=== PATIENT | female | born 1995 | race Caucasian/White ===

== ENCOUNTER 2017-02-16 13:29 | Emergency (ER) | payer OTHER, MEDICAID ==
[~2017-02-16] VITALS: Ht 160 cm; Wt 85.0 kg
[~2017-02-16 13:29] MED LIST: IBUP800T PO
[2017-02-16 14:41] LABS: BLOOD UREA NITROGEN 10 mg/dL (7-18)
[2017-02-16 14:47] LABS: ASPARTATE AMINO TRANSFERASE 17 U/L (15-37)
[2017-02-16] MEDS ORDERED: SODIUM CHLORIDE 0.9% 1,000 ML IV ONE (14:53)
[2017-02-16] MEDS ORDERED: SODIUM CHLORIDE FLUSH 10ML SYR IVF ONE (15:00)
[2017-02-16] MEDS ORDERED: SODIUM CHLORIDE 0.9% 1,000ML IVBOLUS ONE (15:00)
[2017-02-16] MEDS ORDERED: ONDANSETRON 2MG/ML, 2ML IVPush ONE (15:00)
[2017-02-16] MEDS ORDERED: ACETAMINOPHEN 325 MG TABLET PO ONE (15:00)
[2017-02-16] MEDS ORDERED: ACETAMINOPHEN 325 MG TABLET ONE (15:11)
[2017-02-16] MEDS ORDERED: ONDANSETRON 2MG/ML, 2ML ONE (15:11)
[2017-02-16] MEDS ORDERED: MAALOX/HYOSCYAMINE/LIDOCAINE 45 ML BOTTLE PO ONE (16:00)
[2017-02-16] MEDS ORDERED: MAALOX/HYOSCYAMINE/LIDOCAINE 45 ML BOTTLE ONE (16:08)
[2017-02-16 16:52] VITALS: BP 126/74
== END 2017-02-16 17:13 | disposition home or self-care (01) ==
LOC: ED 14:37
DX: N30.81 Other cystitis with hematuria (principal); R10.13 Epigastric pain; R10.33 Periumbilical pain; M41.9 Scoliosis, unspecified
CPT/HCPCS: 36415; 73630; 80053; 81001; 83690; 84703; 85025; 87086; 96361; 96374; 99285; J2405; J7030

== ENCOUNTER 2017-09-02 11:33 | Emergency (ER) | payer MEDICAID ==
[~2017-09-02] VITALS: Ht 160 cm; Wt 77.2 kg
[~2017-09-02 11:33] MED LIST changes: +IBUP-1223 PO; -IBUP800T PO
[2017-09-02] MEDS ORDERED: morphine SULFATE 10 MG/ML, 1ML ONE (12:29)
[2017-09-02] MEDS ORDERED: ONDANSETRON 2MG/ML, 2ML ONE (12:29)
[2017-09-02] MEDS ORDERED: ONDANSETRON 2MG/ML, 2ML IVPush ONE (12:30)
[2017-09-02] MEDS ORDERED: MORPHINE SULFATE 4 MG/ML, 1ML IVPush PRN (12:30)
[2017-09-02] MEDS ORDERED: SODIUM CHLORIDE FLUSH 10ML SYR IVF ONE (12:30)
[2017-09-02 12:40] LABS: PATH.CAST-FLAG NOT PRESENT; SPERM-FLAG NOT PRESENT; SRC-FLAG NOT PRESENT; XTAL-FLAG NOT PRESENT; YLC-FLAG NOT PRESENT
[2017-09-02 12:49] LABS: HEMATOCRIT 38.1 % (34.6-47.8); HEMOGLOBIN 12.8 g/dL (11.7-16.4); WHITE BLOOD COUNT 6.1 x10^3/uL (3.4-10)
[2017-09-02 13:03] LABS: ASPARTATE AMINO TRANSFERASE 15 U/L (15-37); BLOOD UREA NITROGEN 12 mg/dL (7-18)
[2017-09-02 13:42] VITALS: BP 100/61
== END 2017-09-02 13:44 | disposition home or self-care (01) ==
LOC: ED 13:37
DX: K52.9 Noninfective gastroenteritis and colitis, unspecified (principal); G43.909 Migraine, unspecified, not intractable, without status migrainosus; Z90.49 Acquired absence of other specified parts of digestive tract
CPT/HCPCS: 36415; 74176; 80053; 81001; 83690; 85025; 96374; 96375; 99285; J2405

== ENCOUNTER 2017-10-10 10:26 | Emergency (ER) | payer MEDICAID ==
[~2017-10-10] VITALS: Ht 160 cm; Wt 75.0 kg
[2017-10-10] MEDS ORDERED: MAALOX/HYOSCYAMINE/LIDOCAINE 45 ML BTL ONE (11:17)
[2017-10-10] MEDS ORDERED: MAALOX/HYOSCYAMINE/LIDOCAINE 45 ML BTL PO ONE (11:30)
[2017-10-10 11:32] LABS: HEMATOCRIT 38.1 % (34.6-47.8); HEMOGLOBIN 13.2 g/dL (11.7-16.4)
[2017-10-10 11:42] LABS: ASPARTATE AMINO TRANSFERASE 18 U/L (15-37); BLOOD UREA NITROGEN 14 mg/dL (7-18)
[2017-10-10 12:02] VITALS: BP 127/81
== END 2017-10-10 13:16 | disposition home or self-care (01) ==
LOC: ED 13:10
DX: R10.84 Generalized abdominal pain (principal); G43.909 Migraine, unspecified, not intractable, without status migrainosus; Z90.49 Acquired absence of other specified parts of digestive tract
CPT/HCPCS: 36415; 80053; 83690; 85025; 99284

== ENCOUNTER 2018-01-08 14:14 | Emergency (ER) | payer MEDICAID ==
[~2018-01-08] VITALS: Ht 160 cm; Wt 80.1 kg
[2018-01-08] MEDS ORDERED: MORPHINE SULFATE 4 MG/ML, 1ML ONE ×2 (16:15→17:11)
[2018-01-08] MEDS ORDERED: FAMOTIDINE 20 MG/2 ML ONE (16:15)
[2018-01-08] MEDS ORDERED: ONDANSETRON 2MG/ML, 2ML ONE (16:15)
[2018-01-08] MEDS: MORPHINE SULFATE 4 MG/ML, 1ML IVPush PRN ×2 (16:18→17:13)
[2018-01-08 16:22] LABS: BASOPHILS # (AUTO) 0.07 x10^3/uL (0-0.1); BASOPHILS % (AUTO) 1 % (0-1); EOSINOPHILS % (AUTO) 1 % (1-7); LYMPHOCYTES # (AUTO) 3.42 x10^3/uL (1-3.4); LYMPHOCYTES % (AUTO) 32 % (22-44); MD NO; MEAN CORPUSCULAR HEMOGLOBIN 30.2 pg (27.0-34.8); MEAN CORPUSCULAR HGB CONC 33.5 g/dL (32.4-35.8); MEAN CORPUSCULAR VOLUME 90.2 fL (80-100); MEAN PLATELET VOLUME 9.8 fL (7.4-10.4); MONOCYTES # (AUTO) 0.69 x10^3/uL (0.2-0.8); MONOCYTES % (AUTO) 7 % (2-9); NEUTROPHILS # (AUTO) 6.42 x10^3/uL (1.8-6.8); NEUTROPHILS % (AUTO) 60 % (42-75); PLATELET COUNT 298 x10^3/uL (130-400); RED BLOOD COUNT 4.32 x10^6/uL (3.82-5.3); RED CELL DISTRIBUTION WIDTH 13.6 % (9.6-15.2)
[2018-01-08 16:26] LABS: MICROSCOPIC AUTO
[2018-01-08 16:27] LABS: CULTURE INDICATED? YES
[2018-01-08] MEDS ORDERED: SODIUM CHLORIDE FLUSH 10ML SYR IVF ONE (16:30)
[2018-01-08] MEDS ORDERED: ONDANSETRON 2MG/ML, 2ML IVPush ONE (16:30)
[2018-01-08] MEDS ORDERED: FAMOTIDINE 20 MG/2 ML IVP ONE (16:30)
[2018-01-08 16:34] LABS: ALANINE AMINOTRANSFERASE 22 U/L (12-78); ALBUMIN 4.2 g/dL (3.4-5.0); ANION GAP 7 mmol/L (5-15); CALCIUM 8.4 mg/dL (8.5-10.1); CHLORIDE 106 mmol/L (98-107)
[2018-01-08 16:39] LABS: ALKALINE PHOSPHATASE 67 U/L (45-117); BILIRUBIN,TOTAL 0.6 mg/dL (0.2-1.0); TOTAL PROTEIN 7.5 g/dL (6.4-8.2)
[2018-01-08 17:14] VITALS: BP 106/56
== END 2018-01-08 17:36 | disposition home or self-care (01) ==
LOC: ED 16:26
DX: K29.00 Acute gastritis without bleeding (principal)
CPT/HCPCS: 36415; 76700; 80053; 81001; 83690; 84703; 85025; 87086; 93005; 96374; 96375; 96376; S0028

== ENCOUNTER 2018-01-16 14:10 | Emergency (ER) | payer MEDICAID ==
[~2018-01-16] VITALS: Ht 160 cm; Wt 78.0 kg
[2018-01-16 14:13] VITALS: BP 114/76
[2018-01-16] MEDS ORDERED: MAALOX/HYOSCYAMINE/LIDOCAINE 45 ML BTL PO ONE ×2 (14:30→15:00)
[2018-01-16] MEDS ORDERED: ONDANSETRON ODT 4 MG PO ONE (14:30)
[2018-01-16] MEDS ORDERED: ONDANSETRON ODT 4 MG ONE (14:38)
[2018-01-16] MEDS ORDERED: MAALOX/HYOSCYAMINE/LIDOCAINE 45 ML BTL ONE (14:38)
[2018-01-16 15:02] LABS: BASOPHILS # (AUTO) 0.02 x10^3/uL (0-0.1); BASOPHILS % (AUTO) 1 % (0-1); EOSINOPHILS # (AUTO) 0.12 x10^3/uL (0-0.4); EOSINOPHILS % (AUTO) 3 % (1-7); LYMPHOCYTES % (AUTO) 36 % (22-44); MD NO; MEAN CORPUSCULAR HEMOGLOBIN 30.5 pg (27.0-34.8); MEAN CORPUSCULAR HGB CONC 33.6 g/dL (32.4-35.8); MEAN CORPUSCULAR VOLUME 90.5 fL (80-100); MEAN PLATELET VOLUME 10.1 fL (7.4-10.4); MONOCYTES # (AUTO) 0.57 x10^3/uL (0.2-0.8); MONOCYTES % (AUTO) 14 % (2-9); NEUTROPHILS # (AUTO) 2.01 x10^3/uL (1.8-6.8); NEUTROPHILS % (AUTO) 48 % (42-75); PLATELET COUNT 239 x10^3/uL (130-400); RED BLOOD COUNT 3.91 x10^6/uL (3.82-5.3); RED CELL DISTRIBUTION WIDTH 13.1 % (9.6-15.2)
[2018-01-16 15:13] LABS: ALANINE AMINOTRANSFERASE 19 U/L (12-78); ALBUMIN 3.6 g/dL (3.4-5.0); ANION GAP 8 mmol/L (5-15); CALCIUM 7.9 mg/dL (8.5-10.1); CHLORIDE 107 mmol/L (98-107); CREATININE 0.83 mg/dL (0.55-1.02)
[2018-01-16 15:18] LABS: ALKALINE PHOSPHATASE 66 U/L (45-117); BILIRUBIN,TOTAL 0.4 mg/dL (0.2-1.0); TOTAL PROTEIN 6.9 g/dL (6.4-8.2)
[2018-01-16] MEDS ORDERED: KETOROLAC 30 MG/1 ML ONE (15:45)
== END 2018-01-16 16:11 | disposition home or self-care (01) ==
LOC: ED 16:05
DX: R10.13 Epigastric pain (principal); R11.2 Nausea with vomiting, unspecified; R19.7 Diarrhea, unspecified
CPT/HCPCS: 36415; 80053; 83690; 84703; 85025; 99284; Q0162

== ENCOUNTER 2018-04-12 20:13 | Emergency (ER) | payer MEDICAID ==
[~2018-04-12] VITALS: Ht 160 cm; Wt 75.6 kg
[2018-04-12] MEDS ORDERED: HYDROcodone/APAP 5/325 TABLET ONE (20:59)
[2018-04-12] MEDS ORDERED: HYDROcodone/APAP 5/325 TABLET PO ONE (21:00)
[2018-04-12 21:57] VITALS: BP 136/86
== END 2018-04-12 21:59 | disposition home or self-care (01) ==
LOC: ED 21:50
DX: S52.691A Other fracture of lower end of right ulna, initial encounter for closed fracture (principal); W22.09XA Striking against other stationary object, initial encounter; Y93.89 Activity, other specified; Y99.8 Other external cause status; Y92.009 Unspecified place in unspecified non-institutional (private) residence as the place of occurrence of the external cause
CPT/HCPCS: 29125; 99284

== ENCOUNTER 2019-01-23 19:15 | Emergency (ER) | payer MEDICAID, OTHER ==
[~2019-01-23] VITALS: Ht 160 cm; Wt 85.2 kg
[2019-01-23 19:18] VITALS: BP 132/81
--- NOTE | 2019-01-23 19:25 | NUR ---
Fany BOYKIN, at bedside to evaluate pt.
--- NOTE | 2019-01-23 19:35 | NUR ---
Pt to imaging, with tech, ambulatory.
--- NOTE | 2019-01-23 19:57 | NUR ---
Fany BOYKIN, at bedside to discuss ED findings and d/c information.
== END 2019-01-23 20:08 | disposition home or self-care (01) ==
LOC: ED 19:53
DX: M54.12 Radiculopathy, cervical region (principal); M62.830 Muscle spasm of back; G43.909 Migraine, unspecified, not intractable, without status migrainosus
CPT/HCPCS: 72050; 99283

== ENCOUNTER 2019-03-03 12:14 | Emergency (ER) | payer MEDICAID ==
[~2019-03-03] VITALS: Ht 160 cm; Wt 84.3 kg
[2019-03-03 12:39] VITALS: BP 120/73
[2019-03-03 12:58] LABS: BASOPHILS # (AUTO) 0.08 x10^3/uL (0-0.1); BASOPHILS % (AUTO) 1 % (0-1); EOSINOPHILS # (AUTO) 0.19 x10^3/uL (0-0.4); EOSINOPHILS % (AUTO) 2 % (1-7); LYMPHOCYTES # (AUTO) 3.25 x10^3/uL (1-3.4); LYMPHOCYTES % (AUTO) 37 % (22-44); MD NO; MEAN CORPUSCULAR HGB CONC 34.5 g/dL (32.4-35.8); MEAN CORPUSCULAR VOLUME 89.9 fL (80-100); MEAN PLATELET VOLUME 9.9 fL (7.4-10.4); MONOCYTES # (AUTO) 0.63 x10^3/uL (0.2-0.8); MONOCYTES % (AUTO) 7 % (2-9); NEUTROPHILS % (AUTO) 53 % (42-75); PLATELET COUNT 288 x10^3/uL (130-400); RED BLOOD COUNT 4.63 x10^6/uL (3.82-5.3); RED CELL DISTRIBUTION WIDTH 12.6 % (9.6-15.2)
[2019-03-03 13:10] LABS: ALBUMIN 4.3 g/dL (3.4-5.0); ANION GAP 6 mmol/L (5-15); CALCIUM 9.4 mg/dL (8.5-10.1); CHLORIDE 109 mmol/L (98-107); CREATININE 0.81 mg/dL (0.55-1.02)
[2019-03-03 13:14] LABS: BILIRUBIN,TOTAL 0.5 mg/dL (0.2-1.0); TOTAL PROTEIN 8.1 g/dL (6.4-8.2)
[2019-03-03 13:19] LABS: ALANINE AMINOTRANSFERASE 23 U/L (12-78); ALKALINE PHOSPHATASE 64 U/L (45-117)
--- NOTE | 2019-03-03 14:13 | NUR ---
No Answer at [id number]
--- NOTE | 2019-03-03 14:21 | NUR ---
NO ANSWER IN LOBBY AT 1420
== END 2019-03-03 14:33 | disposition left against medical advice (07) ==
LOC: ED 14:27
DX: R10.13 Epigastric pain (principal); R11.2 Nausea with vomiting, unspecified
CPT/HCPCS: 36415; 80053; 83690; 84703; 85025; 99283

== ENCOUNTER 2019-04-13 10:18 | Emergency (ER) | payer MEDICAID ==
[~2019-04-13] VITALS: Ht 160 cm; Wt 84.0 kg
[2019-04-13] MEDS ORDERED: SODIUM CHLORIDE 0.9% 1,000 ML IV ONE (10:31)
[2019-04-13 10:48] LABS: HCG UR SG 1.019 (1.003-1.030); MICROSCOPIC NOT IND
[2019-04-13 10:49] LABS: CULTURE INDICATED? NO
[2019-04-13 10:56] LABS: BASOPHILS # (AUTO) 0.04 x10^3/uL (0-0.1); BASOPHILS % (AUTO) 1 % (0-1); EOSINOPHILS # (AUTO) 0.12 x10^3/uL (0-0.4); EOSINOPHILS % (AUTO) 2 % (1-7); LYMPHOCYTES # (AUTO) 2.58 x10^3/uL (1-3.4); LYMPHOCYTES % (AUTO) 32 % (22-44); MD NO; MEAN CORPUSCULAR HEMOGLOBIN 30.3 pg (27.0-34.8); MEAN CORPUSCULAR VOLUME 91.7 fL (80-100); MONOCYTES # (AUTO) 0.59 x10^3/uL (0.2-0.8); MONOCYTES % (AUTO) 7 % (2-9); NEUTROPHILS # (AUTO) 4.77 x10^3/uL (1.8-6.8); NEUTROPHILS % (AUTO) 59 % (42-75); PLATELET COUNT 260 x10^3/uL (130-400); RED CELL DISTRIBUTION WIDTH 13.1 % (9.6-15.2)
[2019-04-13] MEDS ORDERED: SODIUM CHLORIDE 0.9% 1,000ML IVBOLUS ONE (11:00)
[2019-04-13] MEDS ORDERED: ONDANSETRON 2MG/ML, 2ML IVPush ONE (11:00)
[2019-04-13] MEDS ORDERED: SODIUM CHLORIDE FLUSH 10ML SYR IVF ONE (11:00)
--- NOTE | 2019-04-13 11:06 | NUR ---
BILATERAL FLANK PAIN, NAUSEA. FEELS LIGHTHEADED. IV FLUIDS INFUSING AND TO BE MEDICATED.
[2019-04-13 11:07] LABS: ALANINE AMINOTRANSFERASE 21 U/L (12-78); ALBUMIN 4.1 g/dL (3.4-5.0); ANION GAP 9 mmol/L (5-15); CHLORIDE 107 mmol/L (98-107); CREATININE 0.85 mg/dL (0.55-1.02)
[2019-04-13 11:09] LABS: ALKALINE PHOSPHATASE 53 U/L (45-117); BILIRUBIN,TOTAL 0.5 mg/dL (0.2-1.0); TOTAL PROTEIN 7.6 g/dL (6.4-8.2)
[2019-04-13] MEDS ORDERED: ONDANSETRON 2MG/ML, 2ML ONE (11:09)
--- NOTE | 2019-04-13 12:59 | NUR ---
PT TOLERATED PO CHALLENGE. CONTINUES TO C/O LEFT FLANK PAIN
[2019-04-13] MEDS ORDERED: MAALOX/HYOSCYAMINE/LIDOCAINE 45 ML BTL ONE (13:26)
[2019-04-13] MEDS ORDERED: HYDROmorphone 1 MG/ML, 1ML VIAL ONE (13:27)
[2019-04-13] MEDS ORDERED: MAALOX/HYOSCYAMINE/LIDOCAINE 45 ML BTL PO ONE (13:30)
[2019-04-13] MEDS ORDERED: HYDROmorphone 2 MG/ML, 1ML IVPush PRN (13:30)
--- NOTE | 2019-04-13 13:39 | NUR ---
MEDICATED PER ORDERS FOR PAIN
[2019-04-13 14:11] VITALS: BP 105/62
--- NOTE | 2019-04-13 14:12 | NUR ---
2/10 PAIN SINCE MEDICATED FOR SAME. DISCHARGE GIVEN AND AMBULATED TO DISCHARGE WINDOW STEADY GAIT
== END 2019-04-13 14:14 | disposition home or self-care (01) ==
LOC: ED 10:58
DX: R10.32 Left lower quadrant pain (principal); R10.12 Left upper quadrant pain; R11.2 Nausea with vomiting, unspecified
CPT/HCPCS: 36415; 74176; 80053; 81003; 81025; 83690; 85025; 96361; 96374; 96375; 99284; J1170; J2405; J7030